=== PATIENT | female | born 1955 | race Caucasian/White ===

== ENCOUNTER 2016-12-22 19:09 | Emergency (ER) | payer BC, OTHER ==
[~2016-12-22] VITALS: Ht 160 cm; Wt 54.8 kg
[2016-12-22 19:11] VITALS: TEMP 36.4; Ht 160 cm; Wt 54.8 kg
[2016-12-22] MEDS ORDERED: MYCO500T4 PO (19:45)
[2016-12-22] MEDS ORDERED: CYAN10005 PO (19:45)
[2016-12-22] MEDS ORDERED: OMEP20CA59 PO (19:45)
[2016-12-22] MEDS ORDERED: ASPI81TA28 PO (19:45)
[2016-12-22] MEDS ORDERED: CHOL100010 PO (19:45)
[2016-12-22] MEDS ORDERED: BIOT1CAP8 PO (19:45)
--- NOTE | 2016-12-22 19:57 | DIAGNOSTIC IMAGING REPORT ---
CT SCAN OF THE BRAIN WITHOUT IV CONTRAST CLINICAL HISTORY: Fall with head injury. COMPARISON STUDY: No priors. TECHNIQUE: Unenhanced axial CT scan of the brain is performed from the vertex to the skull base. Automated dose control exposure was utilized. CT DOSE: 614.27 mGy.cm FINDINGS: Brain parenchyma: The brain parenchyma is normal in appearance. There is no hemorrhage, mass effect, or evidence of acute territorial ischemia by CT criteria. Mims-white matter is preserved. No extra-axial fluid collection is seen. Ventricles, sulci, cisterns: Normal in configuration. Intracranial vasculature: The visualized intracranial vasculature at the skull base is normal in appearance. Calvarium: There is no depressed calvarial fracture. Sinuses and mastoids: The visualized paranasal sinuses are clear. The mastoid air cells are well pneumatized. Orbits: The bony orbits are grossly intact. IMPRESSION: No acute intracranial abnormality. Electronically signed by: Dakota Sanders M.D. 12/22/2016 7:56 PM Dictated Date/Time: 12/22/2016 7:54 PM
--- NOTE | 2016-12-22 20:30 | DIAGNOSTIC IMAGING REPORT ---
LEFT WRIST 5 VIEWS CLINICAL HISTORY: Fall. Left wrist pain. FINDINGS: 5 views of left wrist are obtained. No prior studies are available for comparison at the time of dictation. The skeletal structures are osteopenic. There is a buckle fracture of the distal radial metaphysis with overlying soft tissue edema. No distraction or angulation is identified. No additional fracture is identified. Degenerative narrowing seen at the radiocarpal articulation. IMPRESSION: Buckle fracture of the distal radial metaphysis with overlying soft tissue edema. Electronically signed by: Dakota Sanders M.D. 12/22/2016 8:29 PM Dictated Date/Time: 12/22/2016 8:27 PM
--- NOTE | 2016-12-22 20:32 | DIAGNOSTIC IMAGING REPORT ---
SACRUM AND COCCYX 3 VIEWS CLINICAL HISTORY: Fall. Sacrococcygeal pain. FINDINGS: 3 views of the sacrum and coccyx are obtained. No prior studies are available for comparison at the time of dictation. The skeletal structures are osteopenic. There is no radiographic evidence of sacrococcygeal fracture. Mild sclerotic change is noted in the sacroiliac joints. The visualized bony pelvis appears intact. There is a nonobstructed abdominal bowel gas pattern. IMPRESSION: There is no radiographic evidence of sacrococcygeal fracture. Electronically signed by: Dakota Sanders M.D. 12/22/2016 8:30 PM Dictated Date/Time: 12/22/2016 8:29 PM
--- NOTE | 2016-12-22 21:15 | EMERGENCY ROOM VISIT NOTE ---
History First contact with patient: 19:15 Chief Complaint: FALL Stated Complaint: FALL History of Present Illness The patient is a 61 year old female who presents to the Emergency Room via private vehicle with complaints of "fall". Patient states that 20 minutes prior to arrival she was in the household parking lot, and that she was dragging bags behind her with the right hand her female from under her and she fell back striking her tailbone as well as the occipital region of her head on the ground and her left wrist. She notes that she has a history of scleroderma as well as Raynauds which has been exacerbated by this event. She is right- handed. She denies any loss of consciousness. She thinks that she takes an aspirin daily, as well as 600 mg of ibuprofen. She denies any breaks in the skin. She denies any headache, vision changes or neck pain. She is most concerned about her left wrist. Review of Systems A complete 10-point Review of Systems was discussed with the patient, with pertinent positives and negatives listed in the History of Present Illness. All remaining Review of Systems questions can be considered negative unless otherwise specified. Past Medical/Surgical History Skin problems, stomach problems, knee surgery, muscle biopsy, scleroderma, Raynaud, myasthenia gravis, myositis Family History Heart disease Social History Smoking Status: Never Smoker Social History: Patient was at home with spouse, denies tobacco use but does consume alcohol. Current/Historical Medications Scheduled Aspirin (Aspirin Ec), 81 MG PO DAILY Biotin (Biotin), 1 MG PO DAILY Cholecalciferol (Vitamin D), 2,000 INTER.UNIT PO DAILY Cyanocobalamin (Vitamin B-12), 3,000 MCG PO DAILY Mycophenolate Mofetil (Cellcept), 1,000 MG PO BID Omeprazole (Prilosec), 40 MG PO BID Allergies Coded Allergies: Codeine (Verified Allergy, Mild, itching, 12/22/16) Meperidine (Unverified Allergy, Unknown, unknown, 12/22/16) Physical Exam Vital Signs Date Time Temp Pulse Resp B/P Pulse Ox O2 Delivery O2 Flow Rate FiO2 12/22/16 21:21 86 18 143/90 99 Room Air 12/22/16 19:11 36.4 46 20 189/81 100 Room Air Physical Exam VITAL SIGNS - Vital signs and nursing notes were reviewed. Afebrile, hypertensive 189/81, pulse 46, saturating on room air 100%. These were promptly repeated and found to return towards normal. GENERAL - 61-year-old female appearing her stated age who is in no acute distress. Communicates well with provider and answers questions appropriately. SKIN - Without rashes. No acute lacerations. HEAD - NC/AT. EYES - PERRL with EOMI bilaterally. Sclera anicteric. Palpebral conjunctiva pink and moist with no injection noted. EARS - No deformities of external structures noted on gross examination bilaterally. No hemotympanum. External auditory canals without discharge or otorrhea. Tympanic membranes pearly mims without retraction or bulging. No fluid or purulent material visualized behind the TM. Handle of malleus, umbo, cone of light, pars tensa/flaccid all easily visualized. NOSE - Midline and without cyanosis. No epistaxis or purulent drainage noted. Septum midline without deviation or septal hematoma noted. MOUTH/OROPHARYNX - Without perioral cyanosis. Buccal mucosa pink and moist and without leukoplakia. Tongue midline with equal elevation of palate bilaterally. No tonsillar hypertrophy, erythema, or exudates noted. Good dentition noted. NECK - Neck with FROM. Supple to palpation. No lymphadenopathy noted. No nuchal rigidity. No C spine tenderness LUNGS - Chest wall symmetric without accessory muscle use, intercostals retractions, or central cyanosis. Normal vesicular breath sounds CTA B/L. No wheezes, rales, or rhonchi appreciated. CARDIAC - RRR with S1/S2. No murmur, rubs, or gallops appreciated. EXTREMITIES - No clubbing or peripheral cyanosis. No pretibial edema present. +5 /5 strength noted in UE/LE bilaterally. WNL left radial pulse. Discoloration of the fingers consistent with raynauds. tenderness with palpation of left distal left radius. NEUROLOGIC - Cranial nerves II through XII grossly intact. Sensory intact to light touch throughout. PSYCH - A&Ox3 and cooperates fully with examiner. Pt is very pleasant and interacts well with examiner. Medical Decision & Procedures ER Provider Diagnostic Interpretation: SACRUM AND COCCYX 3 VIEWS CLINICAL HISTORY: Fall. Sacrococcygeal pain. FINDINGS: 3 views of the sacrum and coccyx are obtained. No prior studies are available for comparison at the time of dictation. The skeletal structures are osteopenic. There is no radiographic evidence of sacrococcygeal fracture. Mild sclerotic change is noted in the sacroiliac joints. The visualized bony pelvis appears intact. There is a nonobstructed abdominal bowel gas pattern. IMPRESSION: There is no radiographic evidence of sacrococcygeal fracture. Electronically signed by: Dakota Sanders M.D. 12/22/2016 8:30 PM Dictated Date/Time: 12/22/2016 8:[address] SCAN OF THE BRAIN WITHOUT IV CONTRAST CLINICAL HISTORY: Fall with head injury. COMPARISON STUDY: No priors. TECHNIQUE: Unenhanced axial CT scan of the brain is performed from the vertex to the skull base. Automated dose control exposure was utilized. CT DOSE: 614.27 mGy.cm FINDINGS: Brain parenchyma: The brain parenchyma is normal in appearance. There is no hemorrhage, mass effect, or evidence of acute territorial ischemia by CT criteria. Mims-white matter is preserved. No extra-axial fluid collection is seen. Ventricles, sulci, cisterns: Normal in configuration. Intracranial vasculature: The visualized intracranial vasculature at the skull base is normal in appearance. Calvarium: There is no depressed calvarial fracture. Sinuses and mastoids: The visualized paranasal sinuses are clear. The mastoid air cells are well pneumatized. Orbits: The bony orbits are grossly intact. IMPRESSION: No acute intracranial abnormality. Electronically signed by: Dakota Sanders M.D. 12/22/2016 7:56 PM Dictated Date/Time: 12/22/2016 7:54 PM LEFT WRIST 5 VIEWS CLINICAL HISTORY: Fall. Left wrist pain. FINDINGS: 5 views of left wrist are obtained. No prior studies are available for comparison at the time of dictation. The skeletal structures are osteopenic. There is a buckle fracture of the distal radial metaphysis with overlying soft tissue edema. No distraction or angulation is identified. No additional fracture is identified. Degenerative narrowing seen at the radiocarpal articulation. IMPRESSION: Buckle fracture of the distal radial metaphysis with overlying soft tissue edema. Electronically signed by: Dakota Sanders M.D. 12/22/2016 8:29 PM Dictated Date/Time: 12/22/2016 8:27 PM Medical Decision Patient was seen and evaluated as above. After obtaining a thorough history and physical examination benefits versus risk of obtaining imaging were discussed with the patient. It was decided to obtain a CT the head, and radiographs of the left wrist and sacrum/coccyx region. Patient was well- appearing. Results of the imaging as above. Negative CT the head. Negative sacrum coccyx. Radiograph of the wrist reveal buckle fracture. This was discussed with my attending the decision was made to call the on-call orthopedic surgeon as the patient was going on vacation in less than 2 days. I spoke with Dr. Mueller above at 8:50 PM. He noted that she will get the patient tomorrow, and she is to call his office first thing tomorrow morning and explained the situation and she should be able to receive a cast tomorrow. In the meantime we are going to give her a sugar tong splint for the left wrist fracture. This was ordered and applied with good fit. She didn't want any pain medication. She is to call the number given first thing tomorrow morning to schedule follow-up. She was educated upon worrisome symptoms which to return , had questions prior to discharge, was discharged home in good condition. She did not have any signs suggestive of a head injury. I do not suspect a concussion. She was instructed that she may have a hairline fracture in the sacrum. In the evaluation and treatment of this patient, the following differential diagnoses were considered: Concussion, Contrecoup Injury, Brain Tumor, Depression, Encephalitis, Hypothyroidism, Meningitis, CVA, TIA, Migraine, Cluster Headache, Intracranial Abnormality, Intracranial Hemorrhage, Subdural Hematoma, Subarachnoid Hemorrhage, Hydrocephalus, Wrist Sprain, Wrist Fracture, Wrist Dislocation, Scapholunate Dissociation, Carpal Fracture, Metacarpal Fracture, Radial Styloid Process Fracture, Ulnar Styloid Process Fracture, or Carpal Tunnel Syndrome, sacrum fracture, coccyx fracture, among others. Impression Primary Impression: Fall Additional Impressions: Contusion of multiple sites Buckle fracture of radius Closed head injury Departure Information Dispostion Home / Self-Care Condition GOOD Referrals [facility] (PCP) Hung Mueller M.D. Patient Instructions [facility] Additional Instructions You have been treated in the Emergency Department for a Fall. CT Scan of your head/brain demonstrated no acute bleeding or other abnormalities. This does not completely rule out the risk for future damage to the brain. Left wrist fracture. Please wear the splint. For pain control, you can use the following [id number] medicines (if >12 yo): - Regular strength (325mg/tab) Tylenol (acetaminophen) 2 tabs every 4-6 hours as needed. Do not exceed 12 tablets in a 24 hour period. Avoid taking more than 4 grams (4000 mg) of Tylenol per day. This includes any other sources of acetaminophen you may take on a regular basis. - Regular strength (200 mg/tab) Advil (ibuprofen) 1-2 tabs every 4-6 hours as needed. Do not exceed a dose of 3200 mg per day. You should relax in a quiet, dark place for the rest of the day. Avoid any possible triggers including: cigarette smoke, caffeine, nicotine, chocolate, wine, beer, loud noises or music, or bright lights. You should schedule a follow-up appointment in 2-3 days with your Primary Care Provider or established Neurologist for further evaluation and treatment of your Headache WRIST: If this is a recent injury (<24 hrs), ice can be applied to the area of pain for the first 3 days to help decrease pain and inflammation. You have been provided the number for an Orthopaedic Surgeon. You should call this number as soon as possible to establish a follow-up visit from today's Emergency Department visit. (Dr. Mueller). Please call the office first thing tomorrow morning at 8am please inform them that you were see in the emergency department and your case was discussed with Dr. Mueller yesterday evening and informed you that you are to be seen tomorrow (12/23/2016) for your wrist and potential cast as you are going on vacation. Keep the brace/splint in place until evaluated by Orthopedics. Return to the Emergency Department if your current symptoms worsen despite treatment course outlined above, or if you develop any of the following symptoms : intractable pain despite aforementioned treatment course or new onset of numbness or tingling of the fingers. Problem Qualifiers Primary Impression: Fall Encounter type: initial encounter Qualified Codes: W19.XXXA - Unspecified fall, initial encounter Additional Impressions: Closed head injury Encounter type: initial encounter Qualified Codes: S09.90XA - Unspecified injury of head, initial encounter
[2016-12-22 21:21] VITALS: BP 143/90; PULSE 86; O2SAT 99
== END 2016-12-22 21:34 | disposition home or self-care (01) ==
LOC: C.EDB 19:09 → C.EDA 21:34
DX: S09.90XA Unspecified injury of head, initial encounter (principal); W19.XXXA Unspecified fall, initial encounter; Z79.82 Long term (current) use of aspirin

== ENCOUNTER → 2018-06-21 | Day surgery (SDC) | payer BC ==
[2018-05-22 13:52] VITALS: Ht 157.5 cm; Wt 53.2 kg
[~2018-06-21] VITALS: Ht 157.5 cm; Wt 53.2 kg
[~2018-06-21] MED LIST: 500ML BSS 0.3ML EPI 1:1000PF IRRIG ONE; ACETAMINOPHEN 325 MG TAB PO PRN; AMVISC PLUS 0.8ML SYRINGE INT OCU ONE; ASPI81TA28 PO; ATROPINE SULFATE 0.1 MG/ML 5ML SYR IV PRN; BIOT1CAP8 PO; BSS FLUSH ONE; CHOL100010 PO; CYAN10005 PO; EpINEphrine INJ 1MG/ML AMP 1 MG/ML AMP ONE; IBUP-1450 PO; LACTATED RINGER'S 1000ML 500 ML IV SCH; LIDOCAINE 3.5% OPH GEL PER APPLICATION CHARGE ONE; LIDOCAINE HCL 1% MPF 2 ML VIAL ONE; MIDAZOLAM HCL 1 MG/ML 2ML VIAL ONE; MYCO500T4 PO; NORVASC PO; OMEP20CA59 PO; POVIDONE-IODINE OP SOLN 30 ML BTL ONE; PROPARACAINE 0.5% OP SOLN PER DROP CHARGE OPR SCH; TOBRAMYCIN/DEXAMETHASONE OPH OINT PER APPLN CHARGE ONE
[2018-06-21] MEDS: PHENYLEPHRINE HCL 2.5% OP SOLN PER DROP CHARGE OPR SCH ×2 (09:07→09:14)
[2018-06-21] MEDS: TROPICAMIDE 1% OP SOLN PER DROP CHARGE OPR SCH ×2 (09:08→09:16)
[2018-06-21] MEDS: CYCLOPENTOLATE HCL 1% OP SOLN PER DROP CHARGE OPR SCH ×2 (09:11→09:17)
[2018-06-21] MEDS: KETOROLAC 0.5% OP SOLN PER DROP CHARGE OPR SCH ×2 (09:12→09:18)
[2018-06-21] MEDS: GATIFLOXACIN OP SOLN PER DROP CHARGE OPR SCH ×2 (09:13→09:19)
--- NOTE | 2018-06-21 09:42 | History & Physical Bridge - SC ---
H&P Re-Evaluation Bridge Note: I have examined the patient, reviewed the History & Physical and in the interval since the performance of the History & Physical I have noted the following changes of clinical significance: No changes noted
--- NOTE | 2018-06-21 10:28 | Discharge Instructions-SurgCtr ---
Discharge Instructions Date of Service Jun 21, 2018. Visit Reason for Visit: Cataract Right Eye Discharge Discharge Diagnosis / Problem: cataract Discharge Goals Goal(s): Improve function Activity Recommendations Activity Limitations: per Instructions/Follow-up section Anesthesia . Post Anesthesia Instructions: If you have had General Anesthesia or IV Sedation: * Do not drive today. * Resume driving when surgeon permits. * Do not make important decisions or sign legal documents today. * Call surgeon for: 1. Temperature elevations greater than 101 degrees F. 2. Uncontrollable pain. 3. Excessive bleeding. 4. Persistent nausea and vomiting. 5. Medication intolerance (nausea, vomiting or rash). * For nausea and vomiting use only clear liquids such as: tea, soda, bouillon until nausea subsides, then gradually increase diet as tolerated. * If you have any concerns or questions, call your surgeon's office. If physician is unavailable and it is an emergency, call 911 or go to the nearest emergency room. . Diet Recommendations Home Diet: resume previous diet Procedures Procedures Performed: Right Cataract Phacoemulsification With Intraocular Lens Imlant Pending Studies Studies pending at discharge: no Medical Emergencies . Who to Call and When: Medical Emergencies: If at any time you feel your situation is an emergency, please call 911 immediately. . Non-Emergent Contact Non-Emergency issues call your: Data Entry [employer] . . "Provider Documentation" section prepared by Sage Marie. .
--- NOTE | 2018-06-21 10:28 | [facility] Operative Report ---
Operative Report Date of Service Jun 21, 2018. Operative Report 1. PREOPERATIVE DIAGNOSIS: Cataract of the right eye. 2. POSTOPERATIVE DIAGNOSIS: Same. 3. PROCEDURE: Phacoemulsification with intraocular lens implantation of the right eye. SURGEON: Dr. Sage Marie. ANESTHESIA: Topical Lidocaine gel, 1% Non- Preserved intracameral Lidocaine, and monitored intravenous sedation. INDICATIONS FOR THE PROCEDURE: The patient is a 62 - year-old female with a history of cataract of the right eye causing significant visual impairment. The details of the proposed procedure were explained to the patient who asked appropriate questions and following discussion of all risks, benefits and alternatives agreed to have the procedure done. 4. OPERATION AND FINDINGS: DESCRIPTION OF PROCEDURE: After informed consent was obtained, the patient was brought to the Operating Room at the [facility]. The patient was placed in a supine position and then the right eye was prepped and draped in the usual sterile fashion for intraocular surgery. A drop of topical Lidocaine gel was placed in the operative eye. A wire lid speculum was then placed in the fornices. A corneal paracentesis was then created temporally. The Non-Preserved Lidocaine was then instilled into the anterior chamber. The anterior chamber was then pressurized with viscoelastic. A 2.0 mm clear corneal incision was then created temporally. A cystotome was inserted into the anterior chamber and used to create a tear in the anterior lens capsule. This capsular tear was then used to create a small flap and the flap was dragged in a counterclockwise direction in order to create a continuous curvilinear capsulorrhexis. Hydrodissection was accomplished with balanced salt solution. Phacoemulsification of the lens nucleus was then performed in a standard [id number]-gedmama technique. The phaco time was 21 seconds with an average power of 12 %. The remaining cortical material was removed using irrigation aspiration. The capsular bag was then filled with viscoelastic. A [employer] MI60L +14.0 diopters lens was then loaded into the injector and injected into the capsular bag. The remaining viscoelastic was removed with the irrigation aspiration handpiece. The wound was hydrated and then checked and found to be watertight. The intraocular pressure was checked and found to be adequate. The wire lid speculum was removed and the patient's face was cleaned and dried. TobraDex ointment was placed in the inferior fornix. The patient was discharged to the Recovery Room having tolerated the procedure well. There were no complications. The patient will be seen tomorrow in the office for follow-up. I attest to the content of the Intraoperative Record and any orders documented therein. Any exceptions are noted below.
[2018-06-21 10:31] VITALS: TEMP 36.3
--- NOTE | 2018-06-21 10:41 | Anesthesia Progress Nt - [facility] ---
Anesthesia Post Op Note Date & Time Jun 21, 2018 at 10:41 Vital Signs Pain Intensity: 0 Vital Signs Past 12 Hours Date Time Temp Pulse Resp B/P (MAP) Pulse Ox O2 Delivery O2 Flow Rate FiO2 06/21/18 08:54 37.2 65 16 126/75 (92) 100 Room Air Notes Mental Status: alert / awake / arousable, participated in evaluation Pt Amnestic to Procedure: Yes Nausea / Vomiting: adequately controlled Pain: adequately controlled Airway Patency, RR, SpO2: stable & adequate BP & HR: stable & adequate Hydration State: stable & adequate Anesthetic Complications: no major complications apparent
[2018-06-21 11:00] VITALS: BP 115/75; PULSE 68; O2SAT 96
== END | disposition home or self-care (01) ==
LOC: X.SURG 08:45
PROVIDERS: ATTEND Ophthalmology
DX: H26.9 Unspecified cataract (principal); L94.0 Localized scleroderma [morphea]; E78.5 Hyperlipidemia, unspecified; I73.00 Raynaud's syndrome without gangrene; G70.00 Myasthenia gravis without (acute) exacerbation; Z88.5 Allergy status to narcotic agent